=== PATIENT | female | born 1945 | race Caucasian/White ===

== ENCOUNTER 2018-12-26 09:09 | Observation (INO) ==
[2018-12-15 12:30] LABS: Appearance,Urine CLEAR; Bacteria,Urine FEW /hpf (0); Bilirubin,Urine NEG (NEG); Color,Urine STRAW; Culture Indicated,Urine NO; Glucose,Urine (UA) NEGATIVE (NEG); Ketones,Urine NEG (NEG); Leukocyte Esterase,Urine 75 /uL (NEG); Nitrate,Urine NEG (NEG); Protein,Urine NEG (NEG); Specific Gravity,Urine 1.009 (1.000-1.035); Urine Blood NEG mg/dL (<0.03); Urine RBC 0 /hpf (0-1); Urine Squamous Epithelial Cell 6 /hpf (0-4); Urine WBC 10 /hpf (0-4); Urobilinogen,Urine NEG (NEG)
[2018-12-15 13:25] LABS: Blood Urea Nitrogen 23 mg/dl (8-23); Calcium 10.2 mg/dl (8.6-10.4); Carbon Dioxide 23 mmol/L (22-30); Chloride 102 mmol/L (96-108); Glomerular Filtration Rate 64; Glucose 108 mg/dL (70-105)
[2018-12-15 13:29] LABS: Prothrombin Time 12.9 sec (11.9-14.5)
[2018-12-15 13:36] LABS: Basophils # (Auto) 0 K/mcL (0.0-0.3); Basophils % (Auto) 0.7 % (0.0-2.0); Eosinophils # (Auto) 0.1 K/mcL (0.0-0.7); Eosinophils % (Auto) 1.3 % (0.0-7.0); Granulocytes % (Auto) 58.3 % (38.0-78.0); Hematocrit 40.8 % (36.0-48.0); Hemoglobin 13.7 g/dL (12.0-15.0); Lymphocytes # (Auto) 2.4 K/mcL (1.5-4.8); Lymphocytes % (Auto) 34.5 % (15.5-49.0); Mean Cell Volume 87.4 fL (80.0-100.0); Mean Corpuscular HGB Conc 33.7 g/dL (31.0-36.0); Monocytes # (Auto) 0.4 K/mcL (0.1-0.9); Monocytes % (Auto) 5.2 % (1.0-12.0); Platelet Count 255 K/mcL (140-440); RBC 4.67 M/mcL (4.00-5.20); Red Cell Distribution Width 12.8 % (11.5-14.5)
[~2018-12-26 09:09] MED LIST: 0.9 % SODIUM CHLORIDE 9 ML, KETOROLAC 30 MG, ROPIVACAINE HCL/PF 49.5 ML, EPINEPHrine 0.... IJ SCH; CELECOXIB 200 MG CAPSULE PO SCH; IPRATROPIUM/ALBUTEROL 3 ML AMPUL.NEB NEB PRN; PREGABALIN 75 MG CAPSULE PO SCH; SCOPOLAMINE 1 PATCH PATCH TOPICAL PRN; ceFAZolin 2 GM in DEXTROSE 5% IN WATER 50 ML IV SCH; oxyCODONE 10 MG TAB.ER.12H PO SCH
[2018-12-26] MEDS ORDERED: ePHEDrine 50 MG/ML AMPUL IV ONE (11:55)
[2018-12-26] MEDS ORDERED: DEXAMETHASONE 10 MG/ML VIAL IV ONE (11:55)
[2018-12-26] MEDS ORDERED: GLYCOPYRROLATE 0.2 MG/ML VIAL IV ONE (11:55)
[2018-12-26] MEDS ORDERED: TRANEXAMIC ACID 1,000 MG/10 ML VIAL IV ONE ×2 (11:55→13:23)
[2018-12-26] MEDS ORDERED: PROPOFOL 200 MG/20 ML VIAL IV ONE (11:55)
[2018-12-26] MEDS ORDERED: LIDOCAINE HCL/PF 100 MG/5 ML SYRINGE IV ONE (11:55)
[2018-12-26] MEDS ORDERED: ROPIVACAINE HCL/PF 20 ML VIAL IJ ONE (11:55)
[2018-12-26] MEDS ORDERED: ONDANSETRON 4 MG/2 ML VIAL IV ONE (11:55)
[2018-12-26] MEDS ORDERED: KETAMINE 100 MG/ML ML IV ONE (11:55)
[2018-12-26] MEDS ORDERED: GENTAMICIN SULFATE 800 MG/20 ML VIAL IR ONE (12:17)
[2018-12-26] MEDS ORDERED: ONDANSETRON 4 MG/2 ML VIAL IV PRN ×2 (13:18→13:23)
[2018-12-26] MEDS ORDERED: fentaNYL 100 MCG/2 ML VIAL IV PRN (13:18)
[2018-12-26] MEDS ORDERED: ACETAMINOPHEN 1,000 MG/100 ML BOTTLE IV ONE ×2 (13:18→14:15)
[2018-12-26] MEDS ORDERED: IPRATROPIUM/ALBUTEROL 3 ML AMPUL.NEB NEB PRN (13:18)
[2018-12-26] MEDS ORDERED: NALOXONE HCL 0.4 MG/ML VIAL IV PRN (13:18)
[2018-12-26] MEDS ORDERED: LACTATED RINGERS 250 ML IV PRN (13:18)
[2018-12-26] MEDS ORDERED: MEPERIDINE 25 MG/ML SYRINGE IV PRN (13:18)
[2018-12-26] MEDS ORDERED: FLUMAZENIL 0.1 MG/ML ML IV PRN (13:18)
[2018-12-26] MEDS ORDERED: BENZOCAINE/MENTHOL 1 LOZENGE PO PRN (13:18)
[2018-12-26] MEDS ORDERED: PROMETHAZINE 25 MG/ML VIAL IV PRN (13:18)
[2018-12-26] MEDS ORDERED: diphenhydrAMINE 50 MG/ML VIAL IV PRN (13:18)
--- NOTE | 2018-12-26 13:22 | Brief Operative Note ---
Date of procedure: 12/26/18 Pre-op diagnosis: left knee osteoarthritis Post-op diagnosis: same Procedure: left total knee arthroplasty Grafts/Implants: Yes Anesthesia: spinal Complications: none Surgeon: Maciej Barrett Senior Pastor: Gail Quinones Estimated blood loss (cc): 150 Tourniquet Time (Minutes): 52 Specimens Removed/Pathology: none sent Condition: stable Disposition: PACU
[2018-12-26] MEDS ORDERED: POLYETHYLENE GLYCOL 3350 17 GM PACKET PO PRN (13:23)
[2018-12-26] MEDS ORDERED: FLEETS ADULT ENEMA PR PRN (13:23)
[2018-12-26] MEDS ORDERED: BISACODYL 10 MG SUPP.RECT PR PRN (13:23)
[2018-12-26] MEDS ORDERED: MAGNESIUM HYDROXIDE 30 ML ORAL.SUSP PO PRN (13:23)
[2018-12-26] MEDS ORDERED: METHOCARBAMOL 750 MG TABLET PO PRN (13:23)
[2018-12-26] MEDS ORDERED: ONDANSETRON 4 MG ODT TABLET SL PRN (13:23)
[2018-12-26] MEDS ORDERED: LACTATED RINGERS 1,000 ML IV SCH (13:30)
--- NOTE | 2018-12-26 14:09 | XRay Report ---
CLINICAL INFORMATION: Post-Op Total Knee COMPARISON: None. FINDINGS: Total knee prostheses is anatomically aligned. No osseous abnormality. Soft tissue swelling seen as expected IMPRESSION: Negative Interpreted and Authenticated by: Maciej Sommer 12/26/18
--- NOTE | 2018-12-26 14:11 | Operative Note ---
DATE OF OPERATION: 12/26/2018 PREOPERATIVE DIAGNOSIS: Degenerative joint disease, left knee. POSTOPERATIVE DIAGNOSIS: Degenerative joint disease, left knee. PROCEDURE: Left total knee arthroplasty. SURGEON: Selina Barrett M.D. MASTER ELECTRICIAN SURGEON: Gail Quinones PA-C. This provider's expertise and technical skill were required throughout the case. The PA assisted with preoperative coordination, intraoperative retraction, wound closure, dressing and splint application, as well as postoperative documentation and care coordination. ANESTHESIA: Spinal with LMA assist. ESTIMATED BLOOD LOSS: 150 mL COMPLICATIONS: None noted. SPECIMENS REMOVED: None. DRAINS: None. TOURNIQUET TIME: 52 minutes at 300 mmHg. IMPLANTS: DePuy Attune tibial based fixed bearing size 5 cemented, DePuy Attune femoral posterior stabilized size 6 left narrow, DePuy Attune tibial insert fixed bearing posterior stabilized size 6 10 mg AOX, DePuy Attune patella medialized dome 35 mm cemented AOX, CMW2 bone cement 20 grams x5. INDICATIONS: The patient has had a long-standing history of worsening pain in the knee that has failed conservative treatment. Radiographs have confirmed advanced degenerative joint disease. After a long discussion about treatment options, the patient elected to proceed with a knee arthroplasty. The risks and benefits were discussed with the patient in detail including, but not limited to, the risks of anesthesia, problems with the heart or lungs related to anesthesia, infection, compromise or injury to the nerves and blood vessels, deep venous thrombosis, pulmonary embolism, pneumonia, continued pain after surgery, worsening pain or symptoms after surgery, swelling, loss of motion, instability, leg length discrepancy, and need for repeat surgery. DESCRIPTION OF PROCEDURE: The patient was seen in the pre-anesthesia waiting room where all questions were answered and the correct side and site were identified and marked. The patient was transferred to the operating room and administered the anesthetic and given pre-operative antibiotics. A time-out was then called. The extremity was prepped and draped, exsanguinated, and the tourniquet was inflated to 300 mmHg. A midline skin incision was then made with a standard medial parapatellar arthrotomy. Debridement of the menisci, ACL, and PCL was performed followed by balancing releases in the medial lateral plane. We then established intramedullary access to both the femur and tibia in a standard fashion. The femoral guide jaswant was initially placed with the distal femoral guide, pinned into place, and the distal femoral cut was performed and checked with a flat plate. We then turned our attention to the tibia. The intramedullary guide was placed with the proximal tibial cutting block. The block was appropriately positioned off the affected side, varus and valgus was checked with the extra-medullary guide, and the block was pinned into place. The proximal tibial cut was performed and the tibia was prepared for the tibial implant with appropriate rotation. The tibia, femur, and posterior compartment were debrided of osteophytes, loose bodies, and meniscal fragments We then used the gap balancing technique to balance extension with the first two cuts and good balancing was obtained with a 10 millimeter gap block. We turned our attention back to the femur and used the referencing block and implant to size appropriately. Using the gap balancing technique for the flexion space we set our rotation of the femur off the tibial cut. Anesthesia gave the patient 1 gram of Tranexamic Acid via an intravenous route. We placed the 4 in 1 cutting block and made anterior, posterior, and chamfer cuts. Box plasty cuts were then made in a standard fashion for the posterior stabilized prosthesis. We then completed osteophyte release and posterior capsule release from the posterior compartment. Trials were placed and we chose the polyethylene insert thickness that provided the best stability in all planes. With the trials in place, we did a measured resection for a resurfacing patella. We sized the patella and placed the patella trial and performed a lateral facetectomy with the saw and rongeur. Good tracking was obtained. We removed all trials, irrigated and dried all cut surfaces. We cemented the components into place including tibia, femur and patella. We placed a trial liner and held the knee in full extension with the patella compressed while the cement cured. We then removed all excess cement and placed the final polyethylene tibiofemoral component. Irrigation with 3 liters of antibiotic saline was then performed using jet-lavage. We let the tourniquet down and coagulated bleeding vessels. We injected a 100 cubic centimeter volume including Ropivacaine 49.25 cubic centimeters at 5 milligrams per cubic centimeter, Ketorolac 30 milligrams, and Epinephrine 0.5 milligrams into 100 cubic centimeters volume of normal saline. We closed the retinaculum with #2 Stratafix and 0 Vicryl. We closed the subcutaneous tissue and skin in layers out to Dermabond on the skin. A sterile pressure dressing was applied. All needle and sponge counts were correct. The patient was transferred to the recovery room in stable condition. JMaude:kirti Job ID: [id number] Doc ID: [id number] Selina Barrett MD
[2018-12-26] MEDS: 0.9 % SODIUM CHLORIDE 10 ML SYRINGE IV SCH ×2 (15:46→21:22)
[2018-12-26] MEDS: KETOROLAC 15 MG/ML VIAL IV SCH ×2 (18:02→23:58)
[2018-12-26] MEDS: ceFAZolin 1 GM VIAL IV SCH (19:53)
[2018-12-26] MEDS: LACTATED RINGERS 1,000 ML IV SCH (19:56)
[2018-12-26] MEDS: HYDROcodone/APAP 10/325MG TABLET PO PRN (20:10)
[2018-12-26] MEDS: SENNOSIDES 1 TABLET PO SCH (20:11)
[2018-12-26] MEDS: DOCUSATE SODIUM 100 MG CAPSULE PO SCH (20:11)
[2018-12-26] MEDS: ASPIRIN 81 MG TAB.CHEW PO SCH (20:11)
[2018-12-27] MEDS: BENZOCAINE/MENTHOL 1 LOZENGE PO PRN ×2 (00:31→08:20)
[2018-12-27] MEDS: HYDROcodone/APAP 10/325MG TABLET PO PRN ×3 (01:50→20:45)
[2018-12-27] MEDS: LACTATED RINGERS 1,000 ML IV SCH ×3 (02:02→13:31)
[2018-12-27] MEDS: ceFAZolin 1 GM VIAL IV SCH (03:43)
[2018-12-27] MEDS: KETOROLAC 15 MG/ML VIAL IV SCH ×3 (05:18→17:29)
[2018-12-27] MEDS: 0.9 % SODIUM CHLORIDE 10 ML SYRINGE IV SCH ×3 (05:20→20:46)
--- NOTE | 2018-12-27 06:22 | Discharge Summary ---
Providers - Providers Patient information: Note initiated : 12/27/18 at 6:20 am Service Date, if different from initiated Date: [] Patient: Patti Rodriguez 73 y/o F admitted on for Left Total Knee Arthroplasty. Chief Complaint: [POD #1 s/p left TKA Patient wishing to go to rehab, however only has one night stay authorized inpatient here at [facility]. In review with case management. Denies CP, SOB, severe pain or calf pain.] Discharge date: 12/27/18 Hospitalization Hospital Course: Patient brought to OR for left total knee replacement yesterday which went on without complication. Was admitted overnight for pain control and observation. Would like to go to rehab which I feel would benefit her. She does not have any help at home and is somewhat dependent on others. She lacks overall muscle strength and cannot do much on her own at this point. Case management is currently reviewing her situation. If denied, she will discharge to home today. She will follow up in 10-14 days in our office for post op care. Discharge diagnosis: knee osteoarthritis Exam - Exam Incision healing: Yes Incision draining: No Incision red: No Incision swollen: No Incision inflamed: No Clean and dry: Yes Weight bearing status: as tolerated Range of motion: full foot and ankle Ortho Discharge - TKA - Patient Instructions Diet: Regular Diet Activity: weight bearing as tolerated Total Knee Protocol: For Total Knee: Start ROM MONIQUE with stationary bike or rocking chair. Work on gaining full extension of knee. Posterior dislocation precautions provided. Hip abductor strengthening and gait training instructions provided. Apply Cryocuff as instructed. Dressing Care: May shower in 2 days, Other (dermabond. May shower 12/28/18. Remove gauze. Keep mesh in place. May shower over top. Pat dry when done and replace gauze over top of mesh to keep covered. Keep mesh in place until post op appt) - Follow Up Plan Follow Up Appointments: Gail Quinones PA-C [Physician Dance Choreographer] - Disposition: Home, Self-Care Prognosis: Fair Rehab Potential: Fair I certify that the patient requires SNF services: Yes (pending snf) Overall status at discharge: patient is not back to baseline - Orders For Discharge Prescriptions: Aspirin 81 mg PO BID #28 tab.chew Transmission Status: Pending to [facility] 2005 HYDROcodone/APAP 10/325MG [Success 10-325Mg] 1 - 2 tab PO Q4HP PRN #60 tab PRN Reason: Pain Level 3-6 Prescription Printed Additional Discharge Orders: Physical Therapy at Discharge - TKA Location: None Selected Walker Location: None Selected Pending Studies Resuscitation Status Full Code Diet Regular Diet Start TueDec 27 1323 Hydrocodone Bitart/Acetaminophen (Success 10/325mg) 0 tab PO Q4HP PRN PRN Reason: PAIN LEVEL 3-6 Last Admin: 12/27/18 01:50 Dose: 2 tab Documented by: Admin: 12/26/18 20:10 Dose: 2 tab Documented by: BUNNY Aspirin (Aspirin) 81 mg PO BID [facility] Last Admin: 12/26/18 20:11 Dose: 81 mg Documented by: BUNNY Docusate Sodium (Colace) 100 mg PO BID [facility] Last Admin: 12/26/18 20:11 Dose: 100 mg Documented by: BUNNY Lactated Ringer's (Lactated Ringers) 1,000 mls @ 125 mls/hr IV .Q8H [facility] Last Admin: 12/27/18 05:19 Dose: Not Given Documented by: Infusion: 12/27/18 05:17 Dose: 125 mls/hr Documented by: Admin: 12/27/18 02:02 Dose: Not Given Documented by: Admin: 12/26/18 19:56 Dose: 125 mls/hr Documented by: BUNNY Ketorolac Tromethamine (Toradol) 15 mg IV Q6 [facility] Stop: 12/28/18 12:01 Last Admin: 12/27/18 05:18 Dose: 15 mg Documented by: Admin: 12/26/18 23:58 Dose: 15 mg Documented by: Admin: 12/26/18 18:02 Dose: 15 mg Documented by: PANCHO Methocarbamol (Robaxin) 750 mg PO Q6HP PRN PRN Reason: Muscle Spasm Last Admin: 12/26/18 20:11 Dose: 750 mg Documented by: BUNNY Senna (Senokot) 2 tab PO HS [facility] Last Admin: 12/26/18 20:11 Dose: 2 tab Documented by: BUNNY Sodium Chloride (Saline Flush) 10 ml IV Q8 [facility] Last Admin: 12/27/18 05:20 Dose: 10 ml Documented by: Admin: 12/26/18 21:22 Dose: Not Given Documented by: Admin: 12/26/18 15:46 Dose: Not Given Documented by: PANCHO Throat Lozenges (Cepacol) 1 lozenge PO PRN PRN PRN Reason: Sore Throat Last Admin: 12/27/18 00:31 Dose: 1 lozenge Documented by: BUNNY Shift Summary 12/27/18 04:29 Shift Summary by Sima Gabriel The patient is alert and oriented times four, up to void via bedside commode with 1-2 person assist and FWW/gait belt with a unsteady gait/imbalance and poor ability to bear wt to her affected left leg. Dressing CDI, CMS intact, AV boots in place and cyrocuff used for intervals during NOC. She was medicated for pain with Success 10/325 mg 2 tabs three times this shift and is receiving IV Toradol scheduled, she received Robaxin once and her pain was well managed. She received her 2 post op doses of Ancef and her IV was saline locked to her left hand, she is taking adequate PO and no complaints of nausea. VSS, on room air and maintained Sp02 greater than 90% at rest. Plan is to discharge to home to [facility] and then obtain placement into a SNF if she is unable to qualify and have insurance cover a 3 day stay inpatient, she is extended recovery status. Initialized on 12/27/18 04:29 - END OF NOTE
[2018-12-27] MEDS: OXYBUTYNIN CHLORIDE 5 MG TABLET PO SCH (08:14)
[2018-12-27] MEDS: ATORVASTATIN 20 MG TABLET PO SCH (08:14)
[2018-12-27] MEDS: LISINOPRIL 20 MG TABLET PO SCH (08:14)
[2018-12-27] MEDS: DOCUSATE SODIUM 100 MG CAPSULE PO SCH ×2 (08:15→20:46)
[2018-12-27] MEDS: HYDROCHLOROTHIAZIDE 12.5 MG CAPSULE PO SCH (08:15)
[2018-12-27] MEDS: ASPIRIN 81 MG TAB.CHEW PO SCH ×2 (08:15→20:46)
[2018-12-27] MEDS ORDERED: LISINOPRIL/HCTZ 20/12.5MG TABLET PO SCH (09:00)
[2018-12-27] MEDS: SENNOSIDES 1 TABLET PO SCH (20:46)
[2018-12-28] MEDS: KETOROLAC 15 MG/ML VIAL IV SCH ×3 (00:18→12:16)
[2018-12-28] MEDS: HYDROcodone/APAP 10/325MG TABLET PO PRN ×3 (05:09→14:25)
[2018-12-28] MEDS: 0.9 % SODIUM CHLORIDE 10 ML SYRINGE IV SCH ×2 (05:48→15:45)
--- NOTE | 2018-12-28 07:00 | Orthopedic Progress Note ---
Subjective Patient information: Note initiated : 12/28/18 at 6:58 am Service Date, if different from initiated Date: [] Patient: Patti Rodriguez 73 y/o F admitted on 12/27/18 for Left Total Knee Arthroplasty. Chief Complaint: [] Interval history: doing much better today. rogelio started to fire around 3 am Objective Vital signs: Vital Signs Temp Pulse Resp BP BP Pulse Ox 12/28/18 04:00 98.4 F 74 16 127/81 96 12/28/18 00:00 98.0 F 71 18 123/61 94 12/27/18 20:00 98 F 72 18 115/45 95 12/27/18 16:00 98.3 F 71 16 128/56 95 12/27/18 12:00 97.7 F 76 20 112/52 92 12/27/18 08:00 98.3 F 88 14 119/61 94 Intake and Output 12/27/18 12/28/18 12/28/18 21:59 05:59 13:59 Intake Total 300 350 Output Total 700 600 Balance -400 -250 Intake: Oral 300 350 Output: Void Amount 700 600 Other: Meal Lunch Percent of Meal Consumed 100% Feeding Ability Assist with Tray Set Up Urine Appearance Clear Clear Urine Color Dark Yellow Bright Yellow Urine Odor Normal Normal Weight 220 lb Intake & Output: Intake & Output 12/27/18 12/28/18 12/28/18 21:59 05:59 13:59 Intake Total 300 350 Output Total 700 600 Balance -400 -250 Weight 220 lb Intake: Oral 300 350 Output: Void Amount 700 600 Other: Meal Lunch Percent of Meal Consumed 100% Feeding Ability Assist with Tray Set Up Urine Appearance Clear Clear Urine Color Dark Yellow Bright Yellow Urine Odor Normal Normal Incision: Yes healing Incision clean and dry: Yes Dressing: Yes clean, Yes dry, Yes intact Weight bearing status: full Neurological exam IM: No abnormal gait, Yes alert, Yes oriented X3, Yes motor sensory intact, Yes neurovascular intact Extremities exam IM: No calf tenderness, Yes Foot pink and warm, Yes neurovascular intact - Labs CBC & BMP: 12/15/18 10:33 12/15/18 10:33 Labs: Orthopedic Labs 12/15/18 10:33 PT 12.9 INR 1.0 12/15/18 10:33 Hgb 13.7 Hct 40.8 Assessment and Plan (1) Knee osteoarthritis pod 2 s/p tka wbat pain control pt plan to d/c to rehab today Status: Acute
[2018-12-28] MEDS: LISINOPRIL 20 MG TABLET PO SCH (08:53)
[2018-12-28] MEDS: ATORVASTATIN 20 MG TABLET PO SCH (08:54)
[2018-12-28] MEDS: DOCUSATE SODIUM 100 MG CAPSULE PO SCH (08:54)
[2018-12-28] MEDS: OXYBUTYNIN CHLORIDE 5 MG TABLET PO SCH (08:54)
[2018-12-28] MEDS: ASPIRIN 81 MG TAB.CHEW PO SCH (08:54)
[2018-12-28] MEDS: HYDROCHLOROTHIAZIDE 12.5 MG CAPSULE PO SCH (09:19)
== END 2018-12-28 16:15 | disposition home or self-care (01) ==
LOC: SUR 09:09 → MEDSUR 09:09 → EDSTATUS 12:00 → MEDSUR 19:25
PROVIDERS: ADMIT Orthopaedic Surgery Sports Medicine; ATTEND Orthopaedic Surgery Sports Medicine